=== PATIENT | male | born 1970 | race Caucasian/White ===

== ENCOUNTER 2023-11-28 12:40 | Inpatient (IN) | payer MEDICAID, SELFPAY ==
[2023-11-28 12:49] VITALS: BP 138/90; PULSE 85; RESP 17; TEMP 36.3; O2SAT 96
[2023-11-28 12:50] VITALS: BMI 31.9
[2023-11-28 14:00] VITALS: BP 138/90; PULSE 85; RESP 17; TEMP 36.3; O2SAT 96
--- NOTE | 2023-11-28 14:19 | PC.NURSE ---
Checked in home meds of 1 bottle of Flonase into pyxis.
[2023-11-28] MEDS: amoxicillin-clav 875-125 mg Tablet 1 TAB PO (18:16)
[2023-11-28 20:04] VITALS: BP 146/91; PULSE 90; RESP 18; TEMP 36.8; O2SAT 96
[2023-11-28] MEDS: trazodone 50 mg Tablet PO (20:52)
[2023-11-28] MEDS: hyDROXYzine 25 mg Capsule 50 MG PO (20:52)
[2023-11-29 06:00] VITALS: BP 166/70; PULSE 84; RESP 16; TEMP 36.9; O2SAT 95; BMI 32.5
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
[2023-11-29] MEDS: multivitamin therapeutic Tablet 1 TAB PO (09:00)
[2023-11-29] MEDS: acetaminophen 325 mg Tablet 650 MG PO ×2 (09:00→17:21)
[2023-11-29] MEDS: folic acid 1 mg Tablet PO (09:00)
[2023-11-29] MEDS: thiamine 100 mg Tablet PO (09:00)
[2023-11-29] MEDS: amoxicillin-clav 875-125 mg Tablet 1 TAB PO ×2 (09:00→17:20)
[2023-11-29 14:00] VITALS: BP 133/84; PULSE 86; RESP 15; TEMP 36.8; O2SAT 97
[2023-11-29] MEDS: nicotine 21 mg Patch 1 PATCH TRANSDERMA (14:05)
[2023-11-29] MEDS: fluoxetine 20 mg Capsule PO (17:20)
[2023-11-29 19:49] VITALS: BP 127/86; PULSE 82; RESP 18; TEMP 37.1; O2SAT 96
--- NOTE | 2023-11-29 20:12 | PC.NURSE ---
IN BED READING BOOK AND RESTING. DENIES SI/HI AND AVH AT THIS TIME. RATES ANXIETY AND DEPRESSION 0/10. REPORTS TOOTH PAIN 8/10. RN TO ADMINISTER IBUPROFEN 600 MG ORDERED WITH NIGHT TIME MEDICATIONS. PT IS CALM AND COOPERATIVE. REQUESTS MEDICATIONS TO HELP ME SLEEP. RN EDUCATED PT THAT AT BEDTIME RN WOULD GIVE HIM TRAZODONE AND VISTARIL. PT AGREES. ALL QUESTIONS ANSWERED AND SUPPORT WAS VOICED.
[2023-11-29] MEDS: ibuprofen 600 mg Tablet PO (20:31)
[2023-11-29] MEDS: hyDROXYzine 25 mg Capsule 50 MG PO (20:31)
[2023-11-29] MEDS: trazodone 50 mg Tablet PO (20:31)
[2023-11-29 21:37] VITALS: PULSE 94; RESP 17; O2SAT 97
[2023-11-29 21:45] VITALS: PULSE 84
[2023-11-29] MEDS: albuterol 2.5 mg/3 mL Neb INHALATION (21:51)
[2023-11-30 06:00] VITALS: BP 124/76; PULSE 80; RESP 18; TEMP 36.6; O2SAT 97
--- NOTE | 2023-11-30 06:44 | PC.NURSE ---
MEDICATION FOLLOW FOR VISTARIL 50 MG AND TRAZODONE 50 MG THAT WERE GIVEN LAST NIGHT FOR SLEEP ENHANCEMENT AND REDUCTION OF ANXIETY. PT HAS SLEPT ALL SHIFT APPROXIMATELY 10 HOURS. MEDICATIONS ARE DEEMED EFFECTIVE.
[2023-11-30] MEDS: multivitamin therapeutic Tablet 1 TAB PO (08:40)
[2023-11-30] MEDS: thiamine 100 mg Tablet PO (08:41)
[2023-11-30] MEDS: folic acid 1 mg Tablet PO (08:41)
[2023-11-30] MEDS: fluoxetine 20 mg Capsule PO (08:41)
[2023-11-30] MEDS: acetaminophen 325 mg Tablet 650 MG PO ×2 (08:42→18:47)
[2023-11-30] MEDS: amoxicillin-clav 875-125 mg Tablet 1 TAB PO ×2 (08:42→19:05)
[2023-11-30] MEDS: ibuprofen 600 mg Tablet PO (11:31)
--- NOTE | 2023-11-30 11:52 | PC.NURSE ---
PT RECEIVED TYLENOL 650MG FOR TOOTH PAIN RATING 7/10 ON A SCALE OF 0-10 WHERE 0 IN NONE AT ALL AND 10 IS THE WORST POSSIBLE. PT WAS REEVALUATED AND THE RATED PAIN A 3/10 ON THE SAME SCALE. MEDICATION WAS DEEMED EFFECTIVE.
--- NOTE | 2023-11-30 13:27 | PC.NURSE ---
Pt recieved 600mg ibuprofen po. Pt rated pain a 8/10 on a scale where 0 is none and 10 is the worst possible pain. Pt was reevaluated 30 minutes later and he rated his pain a 4/10 on the same scale.
[2023-11-30 14:00] VITALS: BP 124/81; PULSE 79; RESP 18; TEMP 36.8; O2SAT 95
--- NOTE | 2023-11-30 16:52 | P.NPUPN_ITS ---
Subjective NPU Subjective: Patient presented today reporting that he is feeling better. He reports that he spoke with his significant other and she seems to be forgiving him. Staff report issues with Facebook or a second account but patient never brought up this issue. He reports feeling safe and not having any thoughts of self-harm and wanting to get back to his life from before. We discussed making sure he does not lose sight of the seriousness of his overdose and the importance of working with the treatment team for aftercare appointments. Mental Status Exam MSE Comments: This is an obese white male looking older than his stated age in hospital scrubs with limited grooming and eye contact. No abnormal movements except for psychomotor retardation. Cooperative with exam in mild distress. Speech was de creased rate and volume. Mood described as pretty good, affect subdued. Thought process organized. Thought content: Patient denied suicidal or homicidal ideation, there were no delusions reported or noted, he denied auditory or visual hallucinations. Attention and concentration were intact and memory was mostly reliable but none were formally tested. He is alert and oriented times 3. Insight and judgment are limited, impulse control is impaired Vitals/I&O/Wt Last Vital Signs Temp 98.2 F 11/30/23 14:00 Pulse 79 11/30/23 14:00 Resp 18 11/30/23 14:00 BP 124/81 11/30/23 14:00 Pulse Ox 95 11/30/23 14:00 O2 Del Method Room Air 11/30/23 14:00 A&P Assessment and plan (1) Major depressive disorder: (2) Partner relational problem: (3) Alcohol use disorder: (4) Infected tooth: (5) Suicide attempt: (6) Suicidal ideation: Plan This is a 53-year-old white male who presents with a history of depression and recent suicidal behavior, has been feeling overwhelmed and stressed, has low mood and feelings of worthlessness, has insomnia and loss of enjoyment in activities, has an infected tooth causing pain and affecting diet, has been having headaches for the last three weeks. Patient has a history of substance abuse and family history of addiction. Patient was raised in an 1. Initiated Prozac 20 mg p.o. daily for depression and anxiety. 2. encourage individual group and milieu therapy. 3. continue 15-minute med checks for safety. 4. recommend sober living treatment at the highest level of care to which the patient is willing to commit. 5. Initiate CIWA protocol. 6. Get connected with appropriate follow-up prior to discharge. Involuntary Hold Information 96 Hour Hold: 96 Hour Involuntary Admission: Yes 96 Hour Hold Ending Date: 12/04/23 96 Hour Hold Ending Time: 00:01 Attestations NPU Medical Necessity Statement*: Inpatient hospitalization is medically necessary and the clinically appropriate intervention at this time. We will monitor medications and make changes as indicated. Likely length of stay 2-4 days. Coding Level of Care Code Acute Code for Chg Fwd Diagnoses Major depressive disorder F32.9 Partner relational problem Z63.0 Alcohol use disorder F10.90 Infected tooth K04.7 Suicide attempt T14.91XA Suicidal ideation R45.851
[2023-11-30 19:54] VITALS: BP 135/88; PULSE 80; RESP 19; TEMP 36.9; O2SAT 96
[2023-11-30] MEDS: albuterol 2.5 mg/3 mL Neb INHALATION (20:40)
[2023-11-30] MEDS: trazodone 50 mg Tablet PO (21:08)
[2023-11-30] MEDS: hyDROXYzine 25 mg Capsule 50 MG PO (21:10)
[2023-12-01 06:00] VITALS: BP 158/107; PULSE 86; RESP 16; TEMP 36.8; O2SAT 96
[2023-12-01] MEDS: folic acid 1 mg Tablet PO (08:38)
[2023-12-01] MEDS: fluoxetine 20 mg Capsule PO (08:38)
[2023-12-01] MEDS: thiamine 100 mg Tablet PO (08:38)
[2023-12-01] MEDS: multivitamin therapeutic Tablet 1 TAB PO (08:38)
[2023-12-01] MEDS: amoxicillin-clav 875-125 mg Tablet 1 TAB PO ×2 (08:39→18:32)
[2023-12-01] MEDS: acetaminophen 325 mg Tablet 650 MG PO ×2 (08:42→21:31)
[2023-12-01] MEDS: nicotine 21 mg Patch 1 PATCH TRANSDERMA (09:44)
[2023-12-01] MEDS: ibuprofen 600 mg Tablet PO (12:36)
[2023-12-01 14:00] VITALS: BP 122/82; PULSE 87; RESP 16; TEMP 36.3; O2SAT 96
--- NOTE | 2023-12-01 19:38 | W.PM.NPUPNS ---
Subjective NPU Subjective: Patient presented today reporting that he is feeling better. I brought up the issue with Facebook and after some avoidance attempted to have a discussion about that issue but mostly focused on the fact that he and his significant other have agreed to erase their pages and focus on their relationship. We discussed the plan for discharge tomorrow and he discussed a plan to follow the treatment team's recommendations for aftercare and continue his medications and try to decrease his drinking behavior. Mental Status Exam MSE Comments: This is an obese white male looking older than his stated age in hospital scrubs with limited grooming and eye contact. No abnormal movements except for psychomotor retardation. Cooperative with exam in no acute distress. Speech was decreased rate and volume. Mood described as pretty good, affect subdued. Thought process organized. Thought content: Patient denied suicidal or homicidal ideation, there were no delusions reported or noted, he denied auditory or visual hallucinations. Attention and concentration were intact and memory was mostly reliable but none were formally tested. He is alert and oriented times 3. Insight and judgment are limited, impulse control is limited Vitals/I&O/Wt Last Vital Signs Temp 97.4 F L 12/01/23 14:00 Pulse 87 12/01/23 14:00 Resp 16 12/01/23 14:00 BP 122/82 12/01/23 14:00 Pulse Ox 96 12/01/23 14:00 O2 Del Method Room Air 12/01/23 14:00 A&P Assessment and plan (1) Major depressive disorder: (2) Partner relational problem: (3) Alcohol use disorder: (4) Infected tooth: (5) Suicide attempt: (6) Suicidal ideation: Plan This is a 53-year-old white male who presents with a history of depression and recent suicidal behavior, has been feeling overwhelmed and stressed, has low mood and feelings of worthlessness, has insomnia and loss of enjoyment in activities, has an infected tooth causing pain and affecting diet, has been having headaches for the last three weeks. Patient has a history of substance abuse and family history of addiction. Patient was raised in an 1. Initiated Prozac 20 mg p.o. daily for depression and anxiety. 2. encourage individual group and milieu therapy. 3. continue 15-minute med checks for safety. 4. recommend sober living treatment at the highest level of care to which the patient is willing to commit. 5. Initiate CIWA protocol. 6. Get connected with appropriate follow-up prior to discharge. Involuntary Hold Information 96 Hour Hold: 96 Hour Involuntary Admission: Yes 96 Hour Hold Ending Date: 12/04/23 96 Hour Hold Ending Time: 00:01 Attestations NPU Medical Necessity Statement*: Inpatient hospitalization is medically necessary and the clinically appropriate intervention at this time. We will monitor medications and make changes as indicated. Likely length of stay 1-3 days. Coding Level of Care Code Acute Code for g Fwd Diagnoses Major depressive disorder F32.9 Partner relational problem Z63.0 Alcohol use disorder F10.90 Infected tooth K04.7 Suicide attempt T14.91XA Suicidal ideation R45.851
[2023-12-01 20:25] VITALS: BP 153/98; PULSE 88; RESP 20; TEMP 37; O2SAT 96
[2023-12-01] MEDS: albuterol 2.5 mg/3 mL Neb INHALATION (20:40)
[2023-12-01] MEDS: hyDROXYzine 25 mg Capsule 50 MG PO (21:28)
[2023-12-01] MEDS: trazodone 50 mg Tablet PO (21:29)
[2023-12-02 06:00] VITALS: BP 133/92; PULSE 84; RESP 20; TEMP 36.6; O2SAT 96
[2023-12-02] MEDS: multivitamin therapeutic Tablet 1 TAB PO (07:53)
[2023-12-02] MEDS: folic acid 1 mg Tablet PO (07:54)
[2023-12-02] MEDS: acetaminophen 325 mg Tablet 650 MG PO ×2 (07:54→13:25)
[2023-12-02] MEDS: amoxicillin-clav 875-125 mg Tablet 1 TAB PO (07:54)
[2023-12-02] MEDS: fluoxetine 20 mg Capsule PO (07:54)
[2023-12-02] MEDS: thiamine 100 mg Tablet PO (07:54)
[2023-12-02] MEDS: ibuprofen 600 mg Tablet PO (10:41)
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
[2023-12-02 13:03] VITALS: BP 133/92; PULSE 84; RESP 20; TEMP 36.6; O2SAT 96
[2023-12-02] MEDS: nicotine 4 mg lozenge MUCOUS MEM (15:32)
== END 2023-12-02 15:41 | disposition home or self-care (01) | DRG 885 ==
PROVIDERS: Admitting Provider Psychiatry & Neurology Psychiatry; Visit Provider Psychiatry & Neurology Psychiatry
DX: F33.9 Major depressive disorder, recurrent, unspecified (principal); F41.9 Anxiety disorder, unspecified; F17.210 Nicotine dependence, cigarettes, uncomplicated; Z84.89 Family history of other specified conditions; F15.11 Other stimulant abuse, in remission; F14.11 Cocaine abuse, in remission; F10.10 Alcohol abuse, uncomplicated; Z87.820 Personal history of traumatic brain injury; T14.91XA Suicide attempt, initial encounter; T43.212A Poisoning by selective serotonin and norepinephrine reuptake inhibitors, intentional self-harm, initial encounter; Y99.9 Unspecified external cause status; F12.90 Cannabis use, unspecified, uncomplicated; Z63.0 Problems in relationship with spouse or partner; R51.9 Headache, unspecified; K04.7 Periapical abscess without sinus; G47.00 Insomnia, unspecified
CPT/HCPCS: 94640; 97150; 97165; J7613